=== PATIENT | female | born 1980 | race Caucasian/White ===

== ENCOUNTER 2017-03-26 08:28 | Outpatient (CLI) | payer OTHER ==
--- NOTE | 2017-03-26 09:28 | ULT ---
LIMITED ABDOMINAL SONOGRAM: History: Abdominal wall lump. Hernia? FINDINGS: Sonographic evaluation of the midline supraumbilical abdominal wall shows a defect at the midline gerri t is 0.8 cm x 0.6 cm. Abdominal contents extends into the subcutaneous fat, approximately 1.8 cm in l ength. Some peristalsis was seen at the deep portion of the herniated contents. IMPRESSION: Midline supraumbilical anterior abdominal wall hernia containing at least some bowel. CT could be use d for better characterization if needed. POS: JOANN
== END 2017-03-26 08:29 | disposition home or self-care (01) ==
LOC: ULT 08:28
PROVIDERS: ATTEND Family Medicine
DX: R19.00 Intra-abdominal and pelvic swelling, mass and lump, unspecified site (principal); K43.9 Ventral hernia without obstruction or gangrene
CPT/HCPCS: 76705